=== PATIENT | female | born 1955 | race Caucasian/White ===

== ENCOUNTER → 2018-12-12 05:44 | Day surgery (SDC) | payer BC ==
--- NOTE | 2018-12-11 17:40 | HP ---
Amended report to enter cosigning physician. HISTORY AND PHYSICAL: DATE OF ADMISSION/SURGERY: 12/12/18 DATE OF OFFICE VISIT: 12/11/18 ATTENDING SURGEON: Dr. Shaina Reyes* (dictated by GERDA Roberson). PROCEDURE: Incision and drainage of fingernail and fingernail biopsy of the right middle finger. HISTORY OF PRESENT ILLNESS: Lynda is a very pleasant 63-year-old woman who complains of a problem with her right middle finger. She has what she describe as a fungus nail for about 10 years. About 3 weeks ago, she started having swelling and redness around the whole fingernail. She has had a course of Keflex that was prescribed by Dr. Guzman that did not help the situation, and she has been recently prescribed doxycycline, that too has not helped, her last dose of that was this morning. She rates her pain as a 3/10. There was no specific injury. She has no numbness or tingling. She does not have this trouble in any of her other fingernails. She has not seen a telecommunications clerk for this issue. She does have a history of melanoma on her lower leg that was treated with an excision. PAST MEDICAL HISTORY: Significant for hypertension, Topher's thyroiditis and arthritis. PAST SURGICAL HISTORY: [place] teeth. MEDICATIONS: 1. Hydrochlorothiazide 25 mg 1 p.o. daily. 2. Levothyroxine sodium 112 mcg 1 p.o. daily. 3. Premarin 0.3 mg 1 p.o. daily. 4. Progesterone micronized 100 mg 1 p.o. daily. 5. Doxycycline 100 mg p.o. b.i.d. ALLERGIES: No known drug allergies. FAMILY HISTORY: Positive for coronary artery disease and cancer. SOCIAL HISTORY: She is a professor. She lives at home with her . She denies tobacco or recreational drug use. She drinks 1 glass of wine a day. She exercises regularly. REVIEW OF SYSTEMS: Positive for hypertension, chronic back pain, and thyroid issues. Otherwise, negative for general, cephalic, CV, respiratory, GI, , other musculoskeletal, integumentary, endocrine, neurologic, hematologic symptoms. Infectious Disease: Negative for MRSA, hep C, and HIV. PHYSICAL EXAMINATION GENERAL: Well-developed, well-nourished 63-year-old female, in mild distress. VITAL SIGNS: Height 68 inches, weight 150 pounds, pulse 65, BP 148/98, respirations 18, pain level 2, BMI 22.8. HEENT: Normocephalic, atraumatic, PERRLA, EOMI. NECK: Supple. No palpable lymph nodes. Throat is clear. PULMONARY: Lungs are clear to auscultation bilaterally. No wheezes, rales, or rhonchi. CARDIO: RRR. S1 and S2 heard. No murmurs, rubs, or gallops. No edema. ABDOMEN: Positive bowel sounds. Soft, nontender. NEUROLOGIC: A and O x3. Cranial nerves II through XII intact. Sensation is intact to light touch. MUSCULOSKELETAL: Right middle finger: On exam, her right middle finger, she has a very thick discolored nail for the distal half of the fingernail. She also has erythema throughout the full fingernail. She has tenderness on the dorsal aspect of the finger. She has no tenderness in the pad of her finger. She can flex and extend the DIP joint as well. Sensation is intact. Skin is intact. IMPRESSION: Paronychia and fungus infection of the right middle fingernail. PLAN: The patient is scheduled to undergo an incision and drainage and fingernail biopsy of the right middle finger on 12/12/[address] Reyes. The procedure as well the risks and benefits were explained to the patient and she agrees to proceed. She will return to the office 10 days postop for followup and suture removal. Prescription for Ultracet was e-prescribed to the patient' s pharmacy for postoperative pain management. GERDA GEE [id number]/[facility] #: [id number] GELACIO
[~2018-12-12 05:44] MED LIST: Buffered Lidocaine 1% SYRIN* 1 ML/SYRINGE INTRADERM ONE; Bupivacaine 0.25% SDV PF* 10 ML VIAL INJ ONE; Dexamethasone TAB* 4 MG ONE; Dexamethasone TAB* 4 MG PO ONE; DiMENhydriNATE IV* 50 MG/ML VIAL IV PUSH PRN; Famotidine IV* 10 MG/ML 2 ML (20 mg) IV ONE; Famotidine IV* 10 MG/ML 2 ML (20 mg) ONE; Ketorolac INJ* 30 MG/ML 1 ML VIAL ONE; Lactated Ringers 1000 ML Bag* 1,000 ML IV SCH; Lidocaine 1% INJ* 10 MG/ML 30 ML SDV ONE; Lidocaine 2% PF * 5 ML VIAL ONE; Midazolam* 1 MG/ML 5 ML VIAL (5 MG) ONE; Morphine 4 MG/ML VIAL (1 ml) 4 MG/ML VIAL IV PRN; Naloxone* 0.4 MG/ML 1 ML VIAL IV PRN; Ondansetron ODT TAB* 4 MG ONE; Ondansetron TAB* 4 MG PO ONE; PROCHLORPERAZINE INJ 5 MG/ML 2 ML VIAL IV PRN; Propofol* 10 MG/ML 20 ML BTL ONE; fentaNYL* 50 MCG/ML 2 ML VIAL (100 MCG VIAL) IV PRN; fentaNYL* 50 MCG/ML 2 ML VIAL (100 MCG VIAL) ONE; hydrALAZINE IV* 20 MG/ML VIAL ONE; oxyCODONE/Acetamin 5/325 MG* TAB PO PRN
[2018-12-12 08:29] VITALS: BP 122/90
--- NOTE | 2018-12-12 12:26 | OP ---
CC: Dr. Reyes OPERATIVE REPORT: DATE OF OPERATION: 12/12/18 DATE OF : 55 SURGEON: Dr. Reyes. CAFETERIA SERVER: Don Fierro ANESTHESIA: Local MAC. ESTIMATED BLOOD LOSS: Zero. TOURNIQUET TIME: About 15 minutes. PRE-OP DIAGNOSIS: Right middle finger nail fungus infection and paronychia. POST-OP DIAGNOSIS: Right middle finger nail fungus infection and paronychia. OPERATIVE PROCEDURE: I and D of the right middle finger and nail bed biopsy. INDICATIONS FOR PROCEDURE: Lynda is a 63-year-old who has had fungus finger nail of her right middle finger for 10 years. She has never had treatment for it. She, 3 weeks ago, developed the paronychi a as well. This was treated with oral antibiotics, but has not resolved. She presents for I and D o f the paronychia and nail bed biopsy for the fungus nail. DESCRIPTION OF PROCEDURE: The patient was brought to the operating room, was given a sedation anesth etic and a digital block with 10 cc of 1% plain lidocaine. The skin of her right hand and forearm wa s prepped and draped in the usual sterile fashion. The middle finger only was exsanguinated with a T ourni-Cot which was left in place for the duration of procedure. The nail plate was removed and ther e was a large mass underneath it, between it and the nail bed. This was removed and sent for patholo gy. We then took a wedge resection of the dorsal nail fold and also took aerobic, anaerobic, and fun gal cultures. The wound was copiously irrigated with a liter of saline then and dressed with Xerofor m under the nail fold, 4x4, Kerlix, and Coban. The patient tolerated the procedure well and was brou ght to the recovery room in good condition. [id number]/[facility] #: [id number]
== END | disposition home or self-care (01) ==
LOC: OR 05:44
PROVIDERS: ATTEND Orthopaedic Surgery
DX: L03.011 Cellulitis of right finger (principal); B35.1 Tinea unguium; E06.3 Autoimmune thyroiditis; I10 Essential (primary) hypertension; M19.90 Unspecified osteoarthritis, unspecified site
CPT/HCPCS: 87070; 87073; 87076; 87077; 87102; 87116; 87185; 87205; 87206; A9270-GY; J0360; J1885; J2250; J2704; J3010; J3490; J8540

== ENCOUNTER 2022-06-21 05:34 | Observation (INO) ==
[2022-06-21] MEDS ORDERED: Lactated Ringers 1000 ml BAG 1,000 ML IV SCH (06:00)
[2022-06-21] MEDS ORDERED: Buffered Lidocaine 1% SYRIN 1 ml INTRADERM ONE (06:00)
[2022-06-21] MEDS ORDERED: Famotidine IV 10 MG/ML 2 ml VIAL (20 mg) IV ONE (06:00)
[2022-06-21] MEDS ORDERED: ceFAZolin 2 GM PREMIX 2 GM/50 ML BAG ONE (06:12)
[2022-06-21] MEDS ORDERED: Famotidine IV 10 MG/ML 2 ml VIAL (20 mg) ONE (06:13)
[2022-06-21] MEDS ORDERED: Midazolam 5 mg/5 ml VIAL 1 mg/ml 5 ml VIAL (5 mg) ONE (07:06)
[2022-06-21] MEDS ORDERED: fentaNYL 100 mcg/2 ml 50 MCG/ML VIAL ONE (07:06)
[2022-06-21] MEDS ORDERED: Acetaminophen IV 1 GM/100ML 0 MG/0 ML BAG IV ONE (07:07)
[2022-06-21] MEDS ORDERED: Sterile Water for Inj 10 ML ONE (07:07)
[2022-06-21] MEDS ORDERED: Ondansetron 4 mg VIAL 2 MG/ML 2 ml VIAL ONE (07:07)
[2022-06-21] MEDS ORDERED: Dexamethasone IV 4 MG/ML VIAL 1 ml VIAL ONE (07:07)
[2022-06-21] MEDS ORDERED: Bupivacaine 0.5% SDV PF 30ML VIAL ONE (07:07)
[2022-06-21] MEDS ORDERED: Sevoflurane BOTTLE ONE (07:07)
[2022-06-21] MEDS ORDERED: Lidocaine 2% PF 5 ML VIAL ONE (07:07)
[2022-06-21] MEDS ORDERED: Propofol 10 MG/ML 20 ML BTL ONE (07:07)
[2022-06-21] MEDS ORDERED: Naloxone 0.4 mg VIAL 0.4 mg/ml 1 ml VIAL IV PRN (07:48)
[2022-06-21] MEDS ORDERED: fentaNYL 100 mcg/2 ml 50 MCG/ML VIAL IV PRN (07:48)
[2022-06-21] MEDS ORDERED: Ondansetron 4 mg VIAL 2 MG/ML 2 ml VIAL IV PRN (10:23)
[2022-06-21] MEDS ORDERED: Morphine 2 MG/ML SYRINGE IV PRN (10:23)
[2022-06-21] MEDS ORDERED: Lactulose 30 ml UDC PO PRN (10:23)
[2022-06-21] MEDS ORDERED: Magnesium Hydroxide LIQ 30 ML UDC PO PRN (10:23)
[2022-06-21] MEDS ORDERED: Ondansetron ODT 4 mg TAB 4 MG TAB PO PRN (10:23)
[2022-06-21] MEDS ORDERED: Lactated Ringers 1000 ml BAG 1,000 ML IV ONE (13:46)
[2022-06-21] MEDS: Lactated Ringers 1000 ml BAG 1,000 ML IV SCH (14:19)
[2022-06-21] MEDS: ceFAZolin 1 GM ADVAN 1 GM in NS 0.9% 50 ML 50 ML IVPB SCH (14:24)
[2022-06-21 19:12] LABS: Hematocrit 37 % (35-47); Hemoglobin 12.3 g/dL (12.0-16.0)
[2022-06-21] MEDS: Magnesium Hydroxide LIQ 30 ML UDC PO SCH (21:37)
[2022-06-22] MEDS: ceFAZolin 1 GM ADVAN 1 GM in NS 0.9% 50 ML 50 ML IVPB SCH ×2 (00:04→09:00)
[2022-06-22] MEDS: Lactated Ringers 1000 ml BAG 1,000 ML IV SCH (05:35)
[2022-06-22 06:31] LABS: Hematocrit 33 % (35-47); Hemoglobin 11.5 g/dL (12.0-16.0); Mean Platelet Volume 7.1 fL (7.4-10.4); Platelet Count 296 10^3/uL (150-450)
[2022-06-22 06:59] LABS: Calcium 8.8 mg/dL (8.6-10.3); Potassium 3.4 mmol/L (3.5-5.0); eGFR CKD-EPI 97.5 (>60)
[2022-06-22] MEDS ORDERED: Potassium Chloride LIQUID 20 MEQ/15 ML LIQUID PO ONE (08:06)
[2022-06-22 08:29] VITALS: BP 156/82
[2022-06-22] MEDS: Magnesium Hydroxide LIQ 30 ML UDC PO SCH (08:56)
[2022-06-22] MEDS ORDERED: Vitamin THERAPEUTIC TAB PO SCH (09:00)
== END 2022-06-22 11:15 | disposition home or self-care (01) ==
LOC: OR 05:34 → SSU 05:34
PROVIDERS: ADMIT Orthopaedic Surgery Adult Reconstructive Orthopaedic Surgery; ATTEND Orthopaedic Surgery Adult Reconstructive Orthopaedic Surgery